=== PATIENT | female | born 1950 | race Caucasian/White ===

== ENCOUNTER 2020-11-29 15:58 | Inpatient (IN) | payer MEDICARE, OTHER ==
[~2020-11-29] VITALS: Ht 157.5 cm; Wt 59.0 kg
[2020-11-29 18:09] LABS: HEMOGLOBIN 14.9 gm/dl (12.3-15.3); RED BLOOD COUNT 4.82 M/UL (4.00-5.10); WHITE BLOOD COUNT 7.9 K/UL (4.5-11.0)
[2020-11-30 04:59] LABS: HEMOGLOBIN 14.4 gm/dl (12.3-15.3); RED BLOOD COUNT 4.67 M/UL (4.00-5.10); WHITE BLOOD COUNT 7.8 K/UL (4.5-11.0)
[2020-11-30 05:34] LABS: BUN/CREATININE RATIO 24 (0-10)
[2020-12-01 04:41] LABS: WHITE BLOOD COUNT 8.4 K/UL (4.5-11.0)
[2020-12-01 04:58] LABS: HEMOGLOBIN 12.1 gm/dl (12.3-15.3); RED BLOOD COUNT 3.96 M/UL (4.00-5.10)
--- NOTE | 2020-12-01 16:27 | NUR ---
RN CALLED DR. REINA AND ASKED IF PATIENT COULD REMOVE TELEMETRY AND CONTINUOUS PULSE OX TO SHOWER. STATED THAT WOULD BE OKAY.
[2020-12-02 04:20] LABS: HEMOGLOBIN 12.3 gm/dl (12.3-15.3); RED BLOOD COUNT 4.08 M/UL (4.00-5.10)
[2020-12-03 06:48] LABS: RED BLOOD COUNT 3.89 M/UL (4.00-5.10); WHITE BLOOD COUNT 7.6 K/UL (4.5-11.0)
[2020-12-03] MEDS ORDERED: IPRAT-ALBUT 0.5-3 ML NEB (09:30)
[2020-12-03] MEDS ORDERED: DOXYCYCLINE HY100 M2 PO (09:30)
[2020-12-03] MEDS ORDERED: BUDESONIDE0.5 MG/2 M NEB (09:30)
[2020-12-03] MEDS ORDERED: DEXAMETHASONE6 MG PO (09:30)
[2020-12-03] MEDS ORDERED: TESSALON PERLE100 MG PO (09:37)
[2020-12-03] MEDS ORDERED: NEBULIZER UNIT (10:26)
--- NOTE | 2020-12-03 10:46 | NUR ---
PT INFORMED THAT MD WANTED HER TO HAVE HOME O2 FOR PRN PURPOSES AND THAT THE O2 WOULD BE DELIVERED HERE. PT STATED THAT SHE DIDNT WANT IT AND THAT HER ROOMMATE HAD A TANK OF O2 THAT SHE COULD USE IF SHE NEEDED IT. PT EDUCATED ON HOW TO CHECK O2 LEVEL AND IMPORTANCE OF MAINTAINING GOOD OXYGENATION. MD INFORMED.
== END 2020-12-03 11:20 | disposition home or self-care (01) | DRG 177 ==
LOC: ER1 15:58 → CDU 19:16 → M/S 19:16
PROVIDERS: Internal Medicine; Physician Assistant Medical; ADMIT Internal Medicine
PROC: XW13325 Transfusion of Convalescent Plasma (Nonautologous) into Peripheral Vein, Percutaneous Approach, New Technology Group 5 (ICD-10-PCS; principal; 2020-11-29)
PROC: 8E0ZXY6 Isolation (ICD-10-PCS; 2020-11-29)
PROC: XW033E5 Introduction of Remdesivir Anti-infective into Peripheral Vein, Percutaneous Approach, New Technology Group 5 (ICD-10-PCS; 2020-11-29)
DX: U07.1 COVID-19 (principal); J12.82 Pneumonia due to coronavirus disease 2019; J96.01 Acute respiratory failure with hypoxia; J15.9 Unspecified bacterial pneumonia; E87.2 Acidosis; R11.2 Nausea with vomiting, unspecified; D69.6 Thrombocytopenia, unspecified; F17.210 Nicotine dependence, cigarettes, uncomplicated; J44.9 Chronic obstructive pulmonary disease, unspecified
CPT/HCPCS: 0240U; 36415; 36600; 71045; 80053; 82550; 82553; 82803; 83605; 83735; 84132; 84484; 85025; 85027; 86140; 86900; 86901; 86927; 87040; 93005; 94640; 94664; 94760; 99285; C9113; J0696; J1100; J1650; J2405; J7030

== ENCOUNTER 2021-03-21 15:22 | Emergency (ER) | payer MEDICARE, OTHER ==
[~2021-03-21 15:22] MED LIST: BUDESONIDE0.5 MG/2 M NEB; DEXAMETHASONE6 MG PO; DOXYCYCLINE HY100 M2 PO; IPRAT-ALBUT 0.5-3 ML NEB; NEBULIZER UNIT; TESSALON PERLE100 MG PO
== END 2021-03-21 19:20 | disposition left against medical advice (07) ==
LOC: ER1 15:22
PROVIDERS: Physician Assistant
DX: R51.9 Headache, unspecified (principal); R09.89 Other specified symptoms and signs involving the circulatory and respiratory systems; R53.1 Weakness; F17.210 Nicotine dependence, cigarettes, uncomplicated
CPT/HCPCS: 71045; 80053; 99284; U0002

== ENCOUNTER 2021-04-23 13:34 | Emergency (ER) | payer MEDICARE, OTHER ==
[2021-04-23] MEDS ORDERED: PROAIR HFA8.5 GM INH (16:07)
== END 2021-04-23 16:22 | disposition home or self-care (01) ==
LOC: ER1 13:34
DX: J06.9 Acute upper respiratory infection, unspecified (principal); J40 Bronchitis, not specified as acute or chronic; Z20.822 Contact with and (suspected) exposure to COVID-19
CPT/HCPCS: 71045; 99285; U0002

== ENCOUNTER 2021-07-29 17:54 | Emergency (ER) | payer MEDICARE, OTHER ==
[~2021-07-29 17:54] MED LIST changes: +PROAIR HFA8.5 GM INH
[2021-07-29 19:41] LABS: HEMOGLOBIN 14.3 gm/dl (12.3-15.3); RED BLOOD COUNT 4.68 M/UL (4.00-5.10); WHITE BLOOD COUNT 8.5 K/UL (4.5-11.0)
[2021-07-29 19:54] LABS: BUN/CREATININE RATIO 17 (0-10)
[2021-07-29] MEDS ORDERED: ZOFRAN 4 MG TAB4 MG PO (21:47)
[2021-07-29] MEDS ORDERED: OMNICEF 300 MG300 MG PO (21:47)
[2021-07-29] MEDS ORDERED: IBUPROFEN600 MG PO (21:47)
== END 2021-07-29 22:38 | disposition home or self-care (01) ==
LOC: ER1 17:54
PROVIDERS: Physician Assistant
DX: R10.9 Unspecified abdominal pain (principal); R31.9 Hematuria, unspecified; F17.200 Nicotine dependence, unspecified, uncomplicated
CPT/HCPCS: 80053; 81001; 85025; 87086; 96372; 99284; J1885

== ENCOUNTER 2021-07-30 14:21 | Emergency (ER) | payer MEDICARE, OTHER ==
[~2021-07-30 14:21] MED LIST changes: +IBUPROFEN600 MG PO; +OMNICEF 300 MG300 MG PO; +ZOFRAN 4 MG TAB4 MG PO
[2021-07-30 15:52] LABS: HEMOGLOBIN 14.3 gm/dl (12.3-15.3); RED BLOOD COUNT 4.69 M/UL (4.00-5.10); WHITE BLOOD COUNT 8.5 K/UL (4.5-11.0)
[2021-07-30 16:13] LABS: BUN/CREATININE RATIO 16 (0-10)
== END 2021-07-30 19:27 | disposition home or self-care (01) ==
LOC: ER1 14:21
PROVIDERS: Physician Assistant
DX: R10.32 Left lower quadrant pain (principal); F17.200 Nicotine dependence, unspecified, uncomplicated; I10 Essential (primary) hypertension
CPT/HCPCS: 80053; 81001; 85025; 99284; Q9967